=== PATIENT | male | born 1985 | race Two or more races ===

== ENCOUNTER → 2019-11-07 | Outpatient (CLI) | payer OTHER ==
--- NOTE | 2019-11-07 11:20 | RADIOLOGY REPORT (SQ) ---
EXAM DESCRIPTION: U/S ABDOMEN LIMITED W/O DOP COMPLETED DATE/TIME: 11/07/2019 10:27 am REASON FOR STUDY: R10.11 RIGHT UPPER QUADRANT PAIN R10.11 RIGHT UPPER QUADRANT PAIN COMPARISON: None. TECHNIQUE: Dynamic and static grayscale images acquired of the abdomen and recorded on PACS. Additio nal selected color Doppler and spectral images recorded. LIMITATIONS: Some structures not visualized due to overlying bowel gas. FINDINGS: PANCREAS: Not well visualized due to overlying bowel gas. LIVER: No masses. Echotexture normal. LIVER VASCULATURE: Normal directional flow of the main portal vein and hepatic veins. GALLBLADDER: 5 mm echogenic focus within the gallbladder lumen without shadowing, possibly stone vers us polyp. ULTRASOUND-DETECTED VELÁSQUEZ'S SIGN: Negative. INTRAHEPATIC DUCTS AND COMMON DUCT: CBD and intrahepatic ducts normal caliber. No filling defects. INFERIOR VENA CAVA: Normal flow. AORTA: No aneurysm. RIGHT KIDNEY: Normal size. Normal echogenicity. Hypoechoic area within the interpolar region possib ly prominent column of Hussain. No hydronephrosis. No calcifications. PERITONEAL AND RIGHT PLEURAL SPACE: No ascites or effusions. OTHER: No other significant findings. IMPRESSION: 1. 5 mm gallbladder stone versus polyp. No evidence of acute cholecystitis. 2. Hypoechoic area within the right interpolar region favored to represent a prominent column of Jacob tin although solid renal lesion not entirely excluded. Dedicated multiphase renal CT or MR should be considered for more complete characterization. TECHNICAL DOCUMENTATION: JOB ID: [id number] 2010 [employer] All Rights Reserved Reading location - IP/workstation name: [email or web address]
== END ==
LOC: RAD 09:56
PROVIDERS: ATTEND Internal Medicine Gastroenterology
DX: K82.9 Disease of gallbladder, unspecified (principal); R10.11 Right upper quadrant pain
CPT/HCPCS: 76705